=== PATIENT | male | born 1980 | race Caucasian/White ===

== ENCOUNTER 2019-07-27 17:58 | Emergency (ER) | payer OTHER, SELFPAY ==
[2019-07-27 18:11] VITALS: BP 135/91; PULSE 71; RESP 16; TEMP 36.1; O2SAT 98
--- NOTE | 2019-07-27 18:31 | ED.EAR ---
HPI - Ear Problem General Chief complaint: Ear Stated complaint: Sore Throat/L ear pain Time Seen by Provider: 07/27/19 18:27 Source: patient and RN notes reviewed Mode of arrival: ambulatory Limitations: no limitations History of Present Illness HPI Narrative: Patient presents today with a 4-hour history of left ear pain and muffled hearing. Denies drainage. Last week he was sick with URI symptoms, but these have resolved. He currently rates pain 4/10 and has tried no [id number] interventions prior to arrival. MD Complaint: ear pain Related Data Home Medications Medication Instructions Recorded Confirmed No Home Medications 07/27/19 07/27/19 Allergies Allergy/AdvReac Type Severity Reaction Status Date / Time No Known Allergies Allergy Mild Unverified 04/02/12 11:54 Review of Systems Review of Systems: Narrative: CONSTITUTIONAL: Denies body aches, fever, chills, or sweats. EYES: Denies visual changes, redness, or discharge. ENT: Denies rhinorrhea, congestion, sore throat. + Left ear pain and muffled hearing CARDIOVASCULAR: Denies chest pain, palpitations, or edema. RESPIRATORY: Denies cough or dyspnea. GASTROINTESTINAL: Denies abdominal pain, nausea, vomiting, or diarrhea. GENITOURINARY: Denies dysuria or hematuria. SKIN: Denies rash, itching, or wounds. MUSCULOSKELETAL: Denies back pain, joint pain, or myalgia. NEUROLOGIC: Denies headache, numbness, tingling, or weakness. PSYCH: Denies depression or anxiety. PMFSH Social History Social History Gender identity (if verbalized by the patient): Male Comments At time of signature, I have reviewed and agree with nursing past medical, surgical, social and family history unless otherwise noted. Please see nursing chart for further information. There is no relevant family history pertinent to the presenting complaint Exam Narrative: Exam Narrative: GENERAL: Well-appearing, well-nourished, and in no acute distress. HEAD: Normocephalic, atraumatic. EYES: EOMI. No redness or drainage. ENT: Mucous membranes pink and moist. Nares clear. No rhinorrhea. Clear fluid behind both eardrums without signs of infection. Throat normal. Uvula midline. NECK: Normal AROM. Supple. No lymphadenopathy. CHEST: No respiratory distress. Clear to auscultation. HEART: Regular rate and rhythm. No murmur appreciated. Normal peripheral pulses. EXTREMITIES: Normal range of motion. No edema. SKIN: Warm, dry, no rash. NEURO: No focal deficits. Alert and oriented x3. Gait steady. PSYCH: Normal affect. No signs of depression or anxiety. Course Vital Signs Vital signs: Vital Signs Temperature 97.0 F L 07/27/19 18:11 Pulse Rate 71 07/27/19 18:11 Respiratory Rate 16 07/27/19 18:11 Blood Pressure 135/91 H 07/27/19 18:11 Pulse Oximetry 98 07/27/19 18:11 Temperature 97.0 F L 07/27/19 18:11 Pulse Rate 71 07/27/19 18:11 Respiratory Rate 16 07/27/19 18:11 Blood Pressure 135/91 H 07/27/19 18:11 Pulse Oximetry 98 07/27/19 18:11 Reviewed. Pt has been instructed to follow up with his PCP regarding his elevated blood pressure today. Medical Decision Making Differential Diagnosis Differential Diagnosis: Otitis media, otitis externa, ruptured TM, serous otitis, eustachian tube dysfunction Vital Signs Vital Signs: Vital Signs Temperature 97.0 F L 07/27/19 18:11 Pulse Rate 71 07/27/19 18:11 Respiratory Rate 16 07/27/19 18:11 Blood Pressure 135/91 H 07/27/19 18:11 Pulse Oximetry 98 07/27/19 18:11 Temperature 97.0 F L 07/27/19 18:11 Pulse Rate 71 07/27/19 18:11 Respiratory Rate 16 07/27/19 18:11 Blood Pressure 135/91 H 07/27/19 18:11 Pulse Oximetry 98 07/27/19 18:11 Critical Care Time Critical Care Time Critical Care Time: No Discharge Plan Discharge Clinical Impression: Acute dysfunction of left eustachian tube Patient Disposition: Home, Self-Care Condition: Stable Additional Instructions: Y
== END 2019-07-27 18:36 | disposition home or self-care (01) ==
PROVIDERS: Emergency Provider Nurse Practitioner; PCP Physician Assistant
DX: H69.92 Unspecified Eustachian tube disorder, left ear (principal)
CPT/HCPCS: 99211; G0463

== ENCOUNTER 2023-05-16 17:52 | Emergency (ER) | payer OTHER, SELFPAY ==
[2023-05-16 18:06] VITALS: BP 138/86; PULSE 94; RESP 16; TEMP 37.1; O2SAT 99
--- NOTE | 2023-05-16 18:09 | ED.EAR ---
HPI - Ear Problem General Chief complaint: Upper Respiratory Infection Stated complaint: right ear pain Time Seen by Provider: 05/16/23 18:08 Source: patient and RN notes reviewed Mode of arrival: ambulatory Limitations: no limitations History of Present Illness HPI Narrative: 42-year-old male presents with concern for right ear pain and sore throat. Reports symptoms got worse this afternoon. He denies drainage from the ear. He reports he saw his doctor yesterday for a cough and was given Tessalon Perles. Complaint: ear pain Related Data Allergies Allergy/AdvReac Type Severity Reaction Status Date / Time No Known Allergies Allergy Mild Unverified 04/02/12 11:54 Review of Systems Review of Systems: CONSTITUTIONAL: Denies malaise, chills, sweats, or fever. EYES: Denies visual changes, redness, or discharge. ENT: Denies rhinorrhea, congestion, sinus pain. Reports sore throat and right ear pain CARDIOVASCULAR: Denies chest pain, palpitations, or edema. RESPIRATORY: Denies cough. Denies dyspnea. GASTROINTESTINAL: Denies abdominal pain, nausea, vomiting, diarrhea SKIN: Denies rash or itching. MUSCULOSKELETAL: Denies myalgia. NEUROLOGIC: Denies headache. All systems reviewed & are unremarkable except as noted in HPI and below PMFSH Social History Social History Gender identity (if verbalized by the patient): Male Comments At time of signature, agree with nursing past medical, surgical, social and family history. There is no relevant family history pertinent to the presenting complaint Exam Narrative: GENERAL: Well-appearing, well-nourished, and in no acute distress. HEAD: Normocephalic EYES: PERRLA, conjunctivae clear ENT: Nares clear. Mucous membranes moist. TM pearly pelletier with sharp light reflex bilaterally; no tragal tenderness. Oropharynx not erythematous without lesions. Tonsils not enlarged and without exudate, no drooling, no hoarseness, no trismus, uvula midline. NECK: Supple. No lymphadenopathy CHEST: Clear to auscultation, breath sounds equal. No wheezing, rhonchi, rales, or stridor. No respiratory distress, speaks in full sentences. HEART: Regular rate and rhythm. No murmur heard. SKIN: Warm, dry, no rash. NEURO: Alert and oriented x3. PSYCH: Normal mood and affect Course Course Emergency Course: Patient is aware of diagnosis, understands and agrees to treatment plan. Anticipatory guidance given. Patient agrees to follow-up as directed and is aware of reasons to seek care at the emergency department. Portions of this record may have been created with voice recognition software Level of Care: Express Care Visit Vital Signs Vital signs: Vital Signs Temperature 98.7 F 05/16/23 18:06 Pulse Rate 94 05/16/23 18:06 Respiratory Rate 16 05/16/23 18:06 Blood Pressure 138/86 05/16/23 18:06 Pulse Oximetry 99 05/16/23 18:06 Oxygen Delivery Room Air 05/16/23 18:06 Temperature 98.7 F 05/16/23 18:06 Pulse Rate 94 05/16/23 18:06 Respiratory Rate 16 05/16/23 18:06 Blood Pressure 138/86 05/16/23 18:06 Pulse Oximetry 99 05/16/23 18:06 Oxygen Delivery Room Air 05/16/23 18:06 Reviewed. Medical Decision Making MDM Narrative Medical decision making narrative: Differential diagnosis considered: Liu virus, strep pharyngitis, allergic rhinitis, upper respiratory tract infection, sinusitis, rhinosinusitis, nasopharyngitis. viral pharyngitis, otitis media, otitis externa, otitis effusion, cerumen impaction, foreign body. Exam findings show no acute concerns or changes; patient is non-toxic appearing and is in no distress. Patient is appropriate for outpatient treatment and follow-up. Vital Signs Vital Signs: Vital Signs Temperature 98.7 F 05/16/23 18:06 Pulse Rate 94 05/16/23 18:06 Respiratory Rate 16 05/16/23 18:06 Blood Pressure 138/86 05/16/23 18:06 Pulse Oximetry 99 05/16/23 18:06 Oxygen Delivery Room Air 05/16/23 18:06 [place]
== END 2023-05-16 18:32 | disposition home or self-care (01) ==
PROVIDERS: Emergency Provider Nurse Practitioner; PCP Physician Assistant
DX: J06.9 Acute upper respiratory infection, unspecified (principal)
CPT/HCPCS: 87081; 87880; 99213; G0463